=== PATIENT | male | born 1965 | race Caucasian/White ===

== ENCOUNTER 2016-10-28 23:02 | Emergency (ER) | payer SELFPAY ==
[~2016-10-28] VITALS: Ht 165.1 cm; Wt 65.5 kg
[2016-10-28 23:10] VITALS: Ht 165.1 cm; Wt 65.5 kg
[2016-10-29] MEDS ORDERED: ALBUTEROL 0.083% (NEB) 2.5 MG/3 ML AMP NEB STA (00:28)
[2016-10-29] MEDS ORDERED: IPRATROPIUM (NEB) 0.5 MG/2.5 ML AMP NEB STA (00:28)
[2016-10-29] MEDS ORDERED: predniSONE 20 MG TAB PO STA (00:28)
--- NOTE | 2016-10-29 00:34 | ERD ---
ER Documentation Chief Complaint Date/Time DATE: 10/29/16 TIME: 00:31 Chief Complaint SOB LAST 3 DAYS BUT WORSE TODAY HPI Pleasant 51-year-old male patient presents with exacerbation of asthma symptoms. Patient reports history of asthma, reports cold symptoms 3 days, and exacerbation of asthma 3 days. Patient is using albuterol every 4 hours and states that it is not helping. Patient reports cough at night, runny nose congestion, and chest tightness. Patient denies any chest pain, dizziness, help dictations, fever or chills. Patient is able to speak clearly, is in no respiratory distress. Oxygen saturation is 100% on room ROS All systems reviewed and are negative except as per history of present illness. PMhx/Soc History of Surgery: No Anesthesia Reaction: No Hx Neurological Disorder: No Hx Respiratory Disorders: No Hx Cardiac Disorders: No Hx Psychiatric Problems: No Hx Miscellaneous Medical Probl: No Hx Alcohol Use: No Hx Substance Use: No Hx Tobacco Use: No Smoking Status: Never smoker Physical Exam Vitals Vital Signs Date Time Temp Pulse Resp B/P Pulse Ox O2 Delivery O2 Flow Rate FiO2 10/29/16 01:02 69 22 98 21 10/28/16 23:10 96.8 76 24 125/75 100 Vitals stable, triage notes reviewed Physical Exam Const: No acute distress Head: Atraumatic Eyes: Normal Conjunctiva PERRLA, EOMI ENT: Normal External Ears, Nose and Mouth. Mucous membranes moist Neck: Resp: Chest rise and fall symmetrically posterior expiratory wheeze, diminished bases Cardio: Regular rate and rhythm, no murmurs Abd: Skin: Back: Ext: Neur: Awake and alert Psych: Normal Mood and Affect Results 24 hrs Current Medications Medications (Trade) Dose Ordered Sig/Brianda Route PRN Reason Start Time Stop Time Status Last Admin Dose Admin Albuterol (Proventil 0.083% (Neb)) 2.5 mg ONCE STAT NEB 10/29/16 00:28 10/29/16 00:31 DC 10/29/16 01:02 Ipratropium [place] (Atrovent 0.02% (Neb)) 0.5 mg ONCE STAT NEB 10/29/16 00:28 10/29/16 00:31 DC 10/29/16 01:02 Prednisone (Prednisone) 60 mg ONCE STAT PO 10/29/16 00:28 10/29/16 00:31 DC 10/29/16 00:47 Procedures/MDM This pleasant 51-year-old male patient presents to emergency department with exacerbation of asthma. Patient does not appear toxic, is in no acute distress. Patient states he has been using his albuterol every 4 hours with no relief of symptoms. Has had symptoms for 3 days. Also reports cold-like symptoms for the last 3 days, runny nose, congestion, cough. Patient reports cough is worse at night. And he has an expiratory wheeze with diminished posterior bases on physical exam. Pneumonia is not suspected, status asthmaticus is not present at this time. Patient received albuterol, Atrovent unit dose hand-held nebulizer treatment, 60 mg of prednisone and was reassessed after 60 minutes. Patient reports feeling much improved, post assessment, patient no longer has expiratory wheeze, is able to move air to bases. No cough noted. I feel patient is candidate for outpatient management and follow- up with primary care physician. Return to emergency room for shortness of breath, symptoms returning, cough not responding to medication. Fever chills chest pain palpitations dizziness. I feel the patient is stable for discharge at this time. I have discussed results, examination findings, the treatment plan with the patient and family present prior to discharge. Indications for emergent reevaluation, side effects of medication were also discussed. All questions were answered. Patient verbalizes understanding and agrees with plan of care. Departure Condition: Good Patient Instructions: Asthma [facility] Additional Instructions: Thank you for for coming to [facility] for your care today. Please ask your nurse or provider if you have questions about your care today and do not leave until all your questions have been answered. Please use any medications given as directed and follow-up with your doctor (or the doctor you were referred to) in the next 2-3 days. If you do not have a primary care doctor you may follow up at the [facility] (listed below). You may also use motrin and tylenol as needed for fever and/or pain unless instructed otherwise by your provider or nurse. Indications for more urgent follow-up have been discussed, but you may return to the Emergency Department at ANY time for any worrisome or worsening symptoms. If you have abdominal pain, please know that no test or exam you received is perfect and you should follow up within 8 hours for continued pain. If you had any imaging studies today, such as an X-Ray or CT Scan, these studies will be reviewed later by a radiologist. You will be called if there are important findings that were not identified today, so make sure the contact information you provided at registration is correct. If you received any narcotic pain control medicine today, such as Vicodin, Morphine or Dilaudid, your coordination and judgment may be affected for a number of hours. Please do not drive or operate heavy machinery, and you may want someone to assist you at home. If you were given a prescription for narcotic medication, be aware that it is very addictive- use sparingly and only if necessary. PAYAM WALTON Oct 29, 2016 00:33
[2016-10-29] MEDS ORDERED: PRED20TA PO (01:39)
[2016-10-29] MEDS ORDERED: ALBU18HF INHALATION (01:40)
== END 2016-10-29 02:22 | disposition home or self-care (01) ==
LOC: FTE 23:02
DX: J45.901 Unspecified asthma with (acute) exacerbation (principal)
CPT/HCPCS: 94664; 99284; J7512

== ENCOUNTER 2016-10-31 22:23 | Emergency (ER) | payer SELFPAY ==
[~2016-10-31] VITALS: Ht 165.1 cm; Wt 65.5 kg
[~2016-10-31 22:23] MED LIST: ALBU18HF INHALATION; PRED20TA PO
[2016-10-31 23:12] VITALS: Ht 165.1 cm; Wt 65.5 kg
[2016-11-01] MEDS ORDERED: ALBUTEROL 0.083% (NEB) 2.5 MG/3 ML AMP HHN STA (00:23)
--- NOTE | 2016-11-01 00:23 | ERD ---
ER Documentation Chief Complaint Date/Time DATE: 11/01/16 TIME: 00:18 Chief Complaint Asthma attack pt seen here and given prednisone. Did not take med HPI 51-year-old male presents emergency room for asthma attack. Stated that he was here last Thursday and was prescribed prednisone 20 mg daily. Stated that he felt better on Thursday, and but had an episode of shortness of breath , wheezing today. Stated that he has been exposed to his coworkers who has been smoking. Denies headache, loss of consciousness, dizziness, blurry vision, changes in vision, photophobia, facial pain, ear pain, throat pain, difficulty swallowing, neck pain, shoulder pain, chest pain, chest pressure, hemoptysis, abdominal pain , back pain, loss of appetite, nausea, vomiting, hematochezia, diarrhea, constipation, urinary symptoms, bladder and bowel incontinences, extremity weakness, extremity tenderness, numbness or tingling sensation, difficulty walking, recent travel, recent exposure to illness, recent antibiotic use in the last 3 months, fever, chills. Allergy: No known drug allergies. PMH: Asthma. Medications: Prednisone. Surgery: Denies. Family history: Primary Social History: Denies. Smokes medical marijuana daily. Occasional drinks alcoholic beverages. Denies smoking cigarettes. Denies use of illegal drugs. ROS All systems reviewed and are negative except as per history of present illness. Medications Home Meds Active Scripts Prednisone* (Prednisone*) 20 Mg Tab, 40 MG PO DAILY for 4 Days, TAB Prov:PASILARICARDO GUZMANAR F 11/01/16 Albuterol Sulfate* (Proair HFA*) 8.5 Gm Hfa.aer.ad, 2 PUFF INH Q4, #1 INHALER Prov:PASILABAN,KLAR F 11/01/16 Albuterol Sulfate* (Ventolin HFA*) 18 Gm Hfa.aer.ad, 2 PUFF INHALATION Q4H, #1 INHALER Prov:ISABELLE,PAYAM 10/29/16 Prednisone* (Prednisone*) 20 Mg Tab, 40 MG PO DAILY for 4 Days, TAB Prov:ISABELLE,PAYAM 10/29/16 PMhx/Soc History of Surgery: No Anesthesia Reaction: No Hx Neurological Disorder: No Hx Respiratory Disorders: No Hx Cardiac Disorders: No Hx Psychiatric Problems: No Hx Miscellaneous Medical Probl: No Hx Alcohol Use: No Hx Substance Use: No Hx Tobacco Use: No Physical Exam Vitals Vital Signs Date Time Temp Pulse Resp B/P Pulse Ox O2 Delivery O2 Flow Rate FiO2 11/01/16 00:54 62 18 97 21 10/31/16 23:12 97.0 66 18 131/69 99 Physical Exam CONSTITUTIONAL: Well-appearing; well-nourished. HEAD: Normocephalic; atraumatic. EYES: Conjunctiva clear, sclera non-icteric, EOM intact. PERRL Ears: Hearing intact. EACs clear, TMs non-bulging, non-inflamed, translucent & mobile, ossicles normal appearance, No obstructions, no erythema, no discharges Nose: No obstructions. No polyps. No external lesions. Mucosa non-inflamed. No external lesions, septum and turbinates normal. No rhinorrhea. No discharges. Frontal sinus is non-tender to palpation. Maxillary sinus is non-tender to palpation. MOUTH: Moist mucous membranes, no lesion, no obstructions, no vesicles, no thrush, patent airway Throat: Uvula in midline. Right tonsil is +1 with no erythema, no exudate. Left tonsil is +1 with no erythema, no exudate. Tolerating secretions well. Good gag reflex. Patent airway. Neck: Supple, without lesions, bruits, or adenopathy. No mass. Thyroid non- enlarged and non-tender to palpation. CHEST: Symmetrical chest. Respirations even and not labored. No retractions noted. CARDIOVASCULAR: Normal S1, S2. RRR. No murmurs, gallops. RESPIRATORY: Normal chest excursion with respiration; rhonchi, or rales. Mild wheezing bilaterally. Breathing even and unlabored. Speaking in clear, full, and complete sentences w/ ease. ABDOMEN: Normal bowel sounds normal. Soft, round, non-distended, non-guarding, no tenderness, no rebound, no organomegaly, no masses, no pulsating abdominal mass. No hernia. No peritoneal signs. : No CVA tenderness. BACK: Symmetrical shoulder. Spine is midline without deformity, tenderness. No evidence of trauma or deformity. PELVIS: Stable pelvis. No evidence of trauma or deformity. MUSCULOSKELETAL: Normal gait and station. No misalignment, asymmetry, crepitation, defects, tenderness, masses, effusions, decreased range of motion, instability, atrophy or abnormal strength or tone in the head, neck, spine, ribs , pelvis or extremities. No calf tenderness. NEUROVASCULAR: Distal pulses are present. Pedal pulse are present, equal, and normal. Capillary refills are < 2 seconds. NEUROLOGIC: Alert and oriented x4. Speaks full and clear sentences. Cranial Nerves II-XII normal. Sensation to pain, touch, and proprioception normal. Grossly unremarkable. No neurologic deficits. Romberg test is negative. PSYCHOLOGICAL: The patients mood and manner are appropriate. No hallucinations , delusions. Not SI. Not HI. Has the capacity to decide for self SKIN: Normal for age and ethnicity; warm; dry; good turgor; no apparent lesions or exudates. No rashes, hives, discoloration. Intact. Results 24 hrs Current Medications Medications (Trade) Dose Ordered Sig/Brianda Route PRN Reason Start Time Stop Time Status Last Admin Dose Admin Dexamethasone (Decadron) 10 mg ONCE ONCE IM 11/01/16 00:30 11/01/16 00:31 DC 11/01/16 00:55 Albuterol (Proventil 0.083% (Neb)) 5 mg ONCE STAT N 11/01/16 00:23 11/01/16 00:25 DC 11/01/16 00:54 Ipratropium [place] (Atrovent 0.02% (Neb)) 0.5 mg ONCE ONCE N 11/01/16 00:30 11/01/16 00:31 DC 11/01/16 00:53 Procedures/MDM Examination: Please see physical examination. Disease process, medical treatment was explained to the patient and family member. They verbalized understanding and agreed with the medical treatment, and follow-up care. Treatment: Decadron 10 mg IM. Re-evaluation: Patient denies headache, dizziness, blurry vision, neck pain, chest pain, shoulder pain, abdominal pain. Tolerating secretions. No difficulty swallowing. Patent airway. No nausea and vomiting. Respirations even and unlabored. Lung sounds are clear to auscultation. Consultation: None. Differential diagnosis: Status asthmaticus versus asthma exacerbation versus asthma attack versus shortness of breath Medical decision makin-year-old male presents emergency room for asthma attack. Stated that he was here last Thursday and was prescribed prednisone 20 mg daily. Stated that he felt better on Thursday, and but had an episode of shortness of breath, wheezing today. Stated that he has been exposed to his coworkers who has been smoking. Patient's complaint, patient's history about his complaint, my physical findings are consistent with my final diagnosis of asthma exacerbation. Medications prescribed are the following: Pro-air. Prednisone was increased to 40 mg daily 4 days. Patient and family member are made aware of the side effects and adverse reactions of the medications prescribed. Instructed on when to seek emergent and medical attention in case allergic/anaphylactic reactions or severe side effects and or adverse reactions to medications. Patient and family member verbalized understanding. Patient instructed Instructed to follow-up with his PCP in 24-48 hours. Patient stated that he was not sure to see her own primary care provider in the next 24 hours. Instructed to Call 911 for chest pain, shortness of breath. Advised to come back here in ED as soon as possible for severity of symptoms which includes but not limited to: any new symptoms; shortness of breath/difficulty of breathing; cardiovascular changes; severe gastrointestinal symptoms; signs and symptoms of bleeding and or infection; signs of compartment syndrome/neurovascular changes; neurological changes/deficits. Patient and family member verbalized understanding. Upon discharge, patient is alert and oriented x 4, speaks full and clear sentences, denies pain, has no neurological deficits, has no neurovascular deficits, difficulty of breathing. Breathing even and unlabored. Lung sounds are clear to auscultation. Not in distress. Appears comfortable. Ambulatory with steady gait. Appears satisfied with care provided here in ED. Departure Diagnosis: Primary Impression: Asthma with acute exacerbation Condition: Good Additional Instructions: Patient instructed Instructed to follow-up with his PCP in 24-48 hours. Patient stated that he was not sure to see her own primary care provider in the next 24 hours. Instructed to Call 911 for chest pain, shortness of breath. Advised to come back here in ED as soon as possible for severity of symptoms which includes but not limited to: any new symptoms; shortness of breath/difficulty of breathing; cardiovascular changes; severe gastrointestinal symptoms; signs and symptoms of bleeding and or infection; signs of compartment syndrome/neurovascular changes; neurological changes/deficits. Patient and family member verbalized understanding. HAYLIE SALAMANCA Nov 01, 2016 00:23
[2016-11-01] MEDS ORDERED: PRED20TA PO (00:25)
[2016-11-01] MEDS ORDERED: ALBU8.5H3 INH (00:25)
[2016-11-01] MEDS ORDERED: DEXAMETHASONE 10 MG/ML 1 ML INJ IM ONE (00:30)
[2016-11-01] MEDS ORDERED: IPRATROPIUM (NEB) 0.5 MG/2.5 ML AMP HHN ONE (00:30)
[2016-11-01] MEDS ORDERED: ALBU2.5V3 NEB (01:35)
[2016-11-01 01:53] VITALS: BP 121/68; PULSE 68; RESP 16
== END 2016-11-01 01:55 | disposition home or self-care (01) ==
LOC: FTE 22:23
DX: J45.901 Unspecified asthma with (acute) exacerbation (principal)
CPT/HCPCS: 94664; 96372; 99284; J1100